=== PATIENT | male | born 1990 | race Caucasian/White ===

== ENCOUNTER 2024-12-19 21:28 | Emergency (ER) | payer OTHER, SELFPAY ==
[2024-12-19 21:33] VITALS: BP 148/81; PULSE 81; TEMP 36.5; O2SAT 99; BMI 66.9
--- NOTE | 2024-12-19 21:43 | ED_ITS ---
HPI - Skin/Abscess/Foreign Bdy General Chief complaint: Skin/Abscess/Foreign Body Stated complaint: INFECTION BY THE TAIL BONE Time Seen by Provider: 12/19/24 21:35 Source: patient Mode of arrival: walk-in Limitations: no limitations History of Present Illness HPI narrative: patient presents with left buttocks abscess . He states started about 2 days ago. complains of pain. No fever or abdominal pain. states it has been draining Related Data Home Medications ?Medication ?Instructions ?Recorded ?Confirmed No Known Home Medications 12/19/24 12/19/24 Allergies Allergy/AdvReac Type Severity Reaction Status Date / Time No Known Drug Allergies Allergy Verified 12/19/24 21:36 Review of Systems 2 ROS0 Status of ROS 10 or more systems reviewed and unremark able except as noted in history and below PFSH PFSH Social History Little interest or pleasure in doing things: not at all Feeling down, depressed, or hopeless: not at all Exam Constitutional Vital Signs, click to edit/add: Last Vital Signs Temp 97.7 F 12/19/24 21:33 Pulse 81 12/19/24 21:33 Resp 16 12/19/24 21:33 BP 148/81 H 12/19/24 21:33 Pulse Ox 99 12/19/24 21:33 O2 Del Method Room Air 12/19/24 21:33 Common normals: no apparent distress, average body habitus, oriented x3, no limitations, healthy appearing, alert and well nourished [facility] Common normals: normocephalic and head/scalp atraumatic Eye Common normals: EOMs intact bilaterally and conjunctivae normal Respiratory Common normals: normal respiratory effort, no retractions, no use of accessory muscles and clear to auscultation bilaterally Cardio Common normals: regular rate, regular rhythm, S1 normal heart sound and S2 normal heart sound GI Common normals: Normal to inspection, nondistended, normoactive bowel sounds present, soft to palpation and non-tender Back & Pelvis Back image (male): 2 1. 3-4cm raised superficial abscess. with pressure there is drainage Extremity Common normals: normal to inspection and full ROM Neuro Common normals: oriented x3, CN's II-XII intact bilaterally and moves all extremities Psych Appearance: grossly normal Course Vital Signs Vital signs: Vital Signs Temperature 97.7 F 12/19/24 21:33 Pulse Rate 81 12/19/24 21:33 Respiratory Rate 16 12/19/24 21:33 Blood Pressure 148/81 H 12/19/24 21:33 Pulse Oximetry 99 12/19/24 21:33 Oxygen Delivery Method Room Air 12/19/24 21:33 Temperature 97.7 F 12/19/24 21:33 Pulse Rate 81 12/19/24 21:33 Respiratory Rate 16 12/19/24 21:33 Blood Pressure 148/81 H 12/19/24 21:33 Pulse Oximetry 99 12/19/24 21:33 Oxygen Delivery Method Room Air 12/19/24 21:33 MDM - Skin/Abscess/Foreign Bdy MDM Narrative Medical decision making narrative: presents with draining left buttocks abscess. No systemic symptoms. afebrile. lesion is already draining. Discussed option to treat with antibiotics only at this time as it is already draining and patient to soak in tub to facilitate healing Discharge Plan Discharge Chief Complaint: Skin/Abscess/Foreign Body Clinical Impression: Abscess of skin or subcutaneous tissue Patient Disposition: Home, Self-Care Prescriptions / Home Meds: No Action No Known Home Medications Print Language: [place]ian Instructions: Abscess (ED) Additional Instructions: bath tub at least twice daily to help drain
[2024-12-19] MEDS: CLINDAMYCIN HCL 150 MG CAPSULE 450 MG PO (22:06)
== END 2024-12-19 22:09 | disposition home or self-care (01) ==
PROVIDERS: Emergency Provider Internal Medicine
DX: L02.31 Cutaneous abscess of buttock (principal)
CPT/HCPCS: 99283